=== PATIENT | male | born 1970 | race Two or more races ===

== ENCOUNTER 2019-11-18 19:52 | Emergency (ER) | payer SELFPAY ==
--- NOTE | 2019-11-18 20:31 | ER Document Report ---
ED Medical Screen (RME) - General Chief Complaint: Scrotal Pain, Acute Onset Stated Complaint: LEFT TESTICLE SWELLING Time Seen by Provider: 11/18/19 20:26 Primary Care Provider: DARIUS GARCIA MD [Primary Care Provider] - Follow up as needed Mode of Arrival: Ambulatory Information source: Patient Notes: 49-year-old male presented to ED for complaint of painful swollen left testicle. He states he noticed it this morning and is gotten progressively worse throughout the day. He is alert oriented respirations regular nonlabored speaking in full sentences. He states he has never had a swollen testicle before. He states he does smoke to black in miles a day drinks once a month and smokes some marijuana. I have greeted and performed a rapid initial assessment of this patient. A comprehensive ED assessment and evaluation of the patient, analysis of test results and completion of medical decision making process will be conducted by an additional ED providers. - Related Data Allergies/Adverse Reactions: No Known Allergies Allergy (Verified 11/18/19 20:21) Past Medical History Pulmonary Medical History: Denies: Hx Tuberculosis Neurological Medical History: Denies: Hx Seizures Renal/ Medical History: Reports: Hx Kidney Stones GI Medical History: Reports: Hx Gastroesophageal Reflux Disease Past Surgical History: Denies: Hx Pacemaker - Immunizations Hx Diphtheria, Pertussis, Tetanus Vaccination: No Physical Exam - Vital signs Vitals: Temp Pulse Resp BP Pulse Ox 97.7 F 75 20 140/75 H 99 11/18/19 19:57 11/18/19 19:57 11/18/19 19:57 11/18/19 19:57 11/18/19 19:57 Course - Vital Signs Vital signs: Temp Pulse Resp BP Pulse Ox 97.7 F 75 20 140/75 H 99 11/18/19 19:57 11/18/19 19:57 11/18/19 19:57 11/18/19 19:57 11/18/19 19:57 Doctor's Discharge - Discharge Referrals: DARIUS GARCIA MD [Primary Care Provider] - Follow up as needed
[2019-11-18] MEDS ORDERED: OXYCODONE-ACETAMINOPHEN 5-325 MG TABLET PO ONE (21:09)
--- NOTE | 2019-11-18 21:11 | ER Document Report ---
ED General - General Chief Complaint: Scrotal Pain, Acute Onset Stated Complaint: LEFT TESTICLE SWELLING Time Seen by Provider: 11/18/19 20:26 Primary Care Provider: DARIUS GARCIA MD [ACTIVE STAFF] - Follow up as needed Mode of Arrival: Ambulatory Information source: Patient - [facility] Notes: Patient presents with left testicle pain. He states that it started this morning. It is been constant. Is worse with movement and better with rest. It radiates into the left inguinal area. He has had no pain with urination. No abdominal pain. No problems with bowel habits. No abdominal pain or fevers. No previous history of similar incidents. No rashes. - Related Data Allergies/Adverse Reactions: No Known Allergies Allergy (Verified 11/18/19 20:21) Past Medical History - General Information source: Patient - Social History Smoking Status: Current Every Day Smoker Frequency of alcohol use: None Drug Abuse: Marijuana Family History: Reviewed & Not Pertinent Patient has homicidal ideation: No Pulmonary Medical History: Denies: Hx Tuberculosis Neurological Medical History: Denies: Hx Seizures Renal/ Medical History: Reports: Hx Kidney Stones GI Medical History: Reports: Hx Gastroesophageal Reflux Disease Past Surgical History: Denies: Hx Pacemaker - Immunizations Hx Diphtheria, Pertussis, Tetanus Vaccination: No Review of Systems - Review of Systems Constitutional: denies: Chills, Fever Cardiovascular: denies: Chest pain, Palpitations Respiratory: denies: Cough, Short of breath -: Yes All other systems reviewed and negative Physical Exam - Vital signs Vitals: Temp Pulse Resp BP Pulse Ox 97.7 F 75 20 140/75 H 99 11/18/19 19:57 11/18/19 19:57 11/18/19 19:57 11/18/19 19:57 11/18/19 19:57 Interpretation: Normal - General General appearance: Appears well, Alert - HEENT Head: Normocephalic, Atraumatic Eyes: Normal Pupils: PERRL - Respiratory Respiratory status: No respiratory distress Chest status: Nontender Breath sounds: Normal Chest palpation: Normal - Cardiovascular Rhythm: Regular Heart sounds: Normal auscultation Murmur: No - Abdominal Inspection: Normal Distension: No distension Bowel sounds: Normal Tenderness: Nontender Organomegaly: No organomegaly - Genitourinary Inspection: Other - Left scrotum appears swollen Tenderness: Testicle tender, Epididymis tender - Left scrotum is diffusely swollen and tender. Scrotum: Swelling - Back Back: Normal, Nontender - Extremities General upper extremity: Normal inspection, Nontender, Normal color, Normal ROM, Normal temperature General lower extremity: Normal inspection, Nontender, Normal color, Normal ROM, Normal temperature, Normal weight bearing. No: Du's sign - Neurological Neuro grossly intact: Yes Cognition: Normal Orientation: AAOx4 [place] Coma Scale Eye Opening: Spontaneous [place] Coma Scale Verbal: Oriented [place] Coma Scale Motor: Obeys Commands [place] Coma Scale Total: 15 Speech: Normal Motor strength normal: LUE, RUE, LLE, RLE Sensory: Normal - Psychological Associated symptoms: Normal affect, Normal mood - Skin Skin Temperature: Warm Skin Moisture: Dry Skin Color: Normal Course - Re-evaluation Re-evalutation: 11/18/19 21:32 Patient presents with left testicle pain. Ultrasound shows a left hydrocele. Exam appears consistent with epididymitis. There is no evidence of torsion. I am going to give the patient antibiotics pain medication and refer him to urology. - Vital Signs Vital signs: Temp Pulse Resp BP Pulse Ox 97.7 F 75 20 140/75 H 99 11/18/19 20:22 11/18/19 19:57 11/18/19 19:57 11/18/19 19:57 11/18/19 19:57 - Diagnostic Test Radiology reviewed: Image reviewed, Reports reviewed Discharge - Discharge Clinical Impression: Left epididymitis Condition: Stable Disposition: HOME, SELF-CARE Instructions: Epididymitis (OM) Additional Instructions: Please call urology as soon as possible to arrange follow-up Prescriptions: Levofloxacin [Levaquin 750 mg Tablet] 750 mg PO DAILY #10 tab Oxycodone HCl/Acetaminophen [Percocet 5-325 mg Tablet] 1 tab PO Q6 PRN 3 Days #12 tablet PRN Reason: Forms: Return to Work Referrals: RENE QUINONES MD [NO LOCAL MD] - Follow up in 3-5 days
--- NOTE | 2019-11-18 21:25 | RADIOLOGY REPORT (SQ) ---
CLINICAL INDICATION: Painful swollen left testicle. . TECHNIQUE: Real time multiplanar ultrasonographic herrmann scale, color Doppler, and spectral Doppler imaging was obtained of the scrotum. 49 static images obtained. Additional cine loop COMPARISON: None. CORRELATION: None. FINDINGS: The right testicle measures 4.6 x 2.3 x 3.6 centimeters. It is of normal homogeneous echotexture. The epididymis measures 2.8 x 1.9 x 1.1 centimeters. It is of normal homogeneous echotexture. Multiple epididymal cysts, the largest measuring 2.1 cm.. Color Doppler imaging is normal. Spectral Doppler imaging is normal. The left testicle measures 3.8 x 2.4 x 3.5 centimeters. It is of normal homogeneous echotexture. The epididymis measures 1.1 x 1.2 x 0.6 centimeters. It is of normal homogeneous echotexture. Large left hydrocele Color Doppler imaging is normal. Spectral Doppler imaging is normal. IMPRESSION: Right epididymal cyst. Left hydrocele. No evidence of torsion.
[2019-11-18] MEDS ORDERED: LEVOFLOXACIN 750 MG TABLET PO ONE (21:42)
[2019-11-18] MEDS ORDERED: CEFTRIAXONE INJ 250 MG VIAL IM ONE (21:45)
[2019-11-18] MEDS ORDERED: LIDOCAINE 1% INJ-PF (10 MG/ML) 30 ML SDV NEB ONE (21:45)
[2019-11-18 22:25] LABS: AMORPHOUS SEDIMENT,URINE TRACE /HPF; APPEARANCE,URINE SLIGHTLY-CLOUDY; BILIRUBIN,URINE NEGATIVE (NEGATIVE); COLOR,URINE YELLOW; GLUCOSE, URINE NEGATIVE (NEGATIVE); KETONES,URINE NEGATIVE (NEGATIVE); PROTEIN,URINE NEGATIVE (NEGATIVE); URINE SPECIFIC GRAVITY 1.018; UROBILINOGEN,URINE NEGATIVE mg/dL (<2.0)
[2019-11-18 22:58] VITALS: BP 114/76
[2019-11-19 00:19] LABS: CHLAM PCR NOT DETECTED (NOT DETECT)
== END 2019-11-18 22:48 | disposition home or self-care (01) ==
LOC: ER 19:52
DX: N45.1 Epididymitis (principal); N50.82 Scrotal pain; F17.200 Nicotine dependence, unspecified, uncomplicated; Z87.442 Personal history of urinary calculi
CPT/HCPCS: 99284; 96372; 81001; 87491; 87591; 76870; 93976; J3490; J0696

== ENCOUNTER 2020-06-01 09:59 | Emergency (ER) | payer OTHER ==
[2020-06-01] MEDS ORDERED: IBUPROFEN 800 MG TABLET PO ONE (11:06)
--- NOTE | 2020-06-01 11:11 | ER Document Report ---
ED Shoulder Pain/Injury - General Chief Complaint: Shoulder Injury Stated Complaint: SHOULDER/ ELBOW PAIN Time Seen by Provider: 06/01/20 11:05 Mode of Arrival: Ambulatory Information source: Patient Notes: 49-year-old male presents to ED for complaint of pain to his left shoulder and elbow. 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 He states he has had pain to both areas since then. He does have full range of motion but with pain and discomfort. There is swelling to the left shoulder and the left elbow. We will get x-rays of both. He has been treated with ibuprofen at this time and we will reassess after his x-rays are completed. Constitutional: Negative for fever. HENT: Negative for sore throat. Eyes: Negative for visual changes. Cardiovascular: Negative for chest pain. Respiratory: Negative for shortness of breath. Gastrointestinal: Negative for abdominal pain, vomiting or diarrhea. Genitourinary: Negative for dysuria. Musculoskeletal: Pain swelling to left elbow and shoulder. He states the pain is increased with any movement. Pain level is a 4/5 at this time since I had him move the shoulder/ Skin: Negative for rash. Neurological: Negative for headaches, weakness or numbness. 10 point ROS negative except as marked above and in HPI. PHYSICAL EXAMINATION: GENERAL: Well-appearing, well-nourished and in no acute distress. HEAD: Atraumatic, normocephalic. EYES: Pupils equal round extraocular movements intact, conjunctiva are normal. ENT: Nares patent NECK: Normal range of motion LUNGS: No respiratory distress Musculoskeletal: Normal range of motion NEUROLOGICAL: The range of motion to the left shoulder and elbow. Both are tender to palpation and swollen. He does have full range of motion but very painful. PSYCH: Normal mood, normal affect. SKIN: Warm, Dry, normal turgor, no rashes or lesions noted. - HPI Occurred: Other - Monday Timing: Still present Where: Work Quality of pain: Throbbing Severity: Moderate Pain Level: 4 Context: Other Associated symptoms: None - Get a pipe while painting Exacerbated by: Movement Relieved by: Remaining still - Related Data Allergies/Adverse Reactions: No Known Allergies Allergy (Verified 11/18/19 20:21) Past Medical History - General Information source: Patient - Social History Smoking Status: Current Every Day Smoker Cigarette use (# per day): Yes - Black and mild Smoking Education Provided: Yes Frequency of alcohol use: None Drug Abuse: Marijuana Family History: Reviewed & Not Pertinent - Past Medical History Cardiac Medical History: Reports: None Pulmonary Medical History: Reports: None EENT Medical History: Reports: Eyes Neurological Medical History: Reports: None Endocrine Medical History: Reports: None Renal/ Medical History: Reports: Hx Kidney Stones Malignancy Medical History: Reports None GI Medical History: Reports: Hx Gastroesophageal Reflux Disease Musculoskeletal Medical History: Reports None Skin Medical History: Reports None Psychiatric Medical History: Reports: None Traumatic Medical History: Reports: None Infectious Medical History: Reports: None Surgical Hx: Negative Past Surgical History: Denies: Hx Pacemaker - Immunizations Hx Diphtheria, Pertussis, Tetanus Vaccination: No Physical Exam - Vital signs Vitals: Temp Pulse Resp BP Pulse Ox 98.6 F 64 18 121/76 98 06/01/20 10:24 06/01/20 10:24 06/01/20 10:24 06/01/20 10:24 06/01/20 10:24 Course - Re-evaluation Re-evalutation: 06/01/20 12:30 X-ray did not show any acute changes. He did have a contusion to the elbow and the shoulder. He does have a history of arthritis and just generative changes to both the elbow and the shoulder. He was given recommendations to follow-up with orthopedics by telephone today to schedule follow-up appointments. - Vital Signs Vital signs: Temp Pulse Resp BP Pulse Ox 98.6 F 64 18 121/76 98 06/01/20 10:24 06/01/20 10:24 06/01/20 10:24 06/01/20 10:24 06/01/20 10:24 - Diagnostic Test Radiology reviewed: Image reviewed, Reports reviewed Discharge - Discharge Clinical Impression: Arthritis Contusion of left shoulder Qualifiers: Encounter type: initial encounter Qualified Code(s): S40.012A - Contusion of left shoulder, initial encounter Left elbow contusion Qualifiers: Encounter type: initial encounter Qualified Code(s): S50.02XA - Contusion of left elbow, initial encounter Condition: Stable Disposition: HOME, SELF-CARE Additional Instructions: CONTUSION: Your injury has resulted in a contusion -- a crushing of the deep tissues. No injury to important structures was detected during the physician's exam. Contusions vary in the amount of pain they cause, and in the length of time required for healing. Typically, the area will become bruised, and will remain painful to touch for two or three weeks. However, most patients are back to working and playing within a few days. After the initial period of rest and cold-packs, your symptoms (together with the doctor's recommendations) will determine how rapidly you can get back to full activity. Usually this means "do what feels okay, but don't do things that hurt." If re-examination was recommended, it's important to follow up as instructed. Call the doctor or return any time if pain increases, if swelling becomes severe, if you develop numbness or weakness in an injured extremity, or if any other alarming symptoms occur. Arthritis Your symptoms are due to arthritis. Arthritis is an inflammation of the joints. There are many types -- osteoarthritis (due to "wear and tear"), auto- immmune arthritis (such as rheumatoid, lupus, Avery's, and others), and cryst al-induced arthritis (such as gout and pseudogout). The physician's examination, combined with laboratory tests, will determine the cause of your arthritis. All types of arthritis are treated with antiinflammatory medications. Other medication may be required for special types of arthritis, or if your problem does not respond to the antiinflammatory medicine. Local warmth may be helpful. Move the involved joints through the full range of motion daily. Mild exercise is usually still possible for most persons with arthritis (ask your physician). Swimming provides good exercise without damaging the joints. Contact the physician if you are worsening in any way. USE OF TYLENOL (ACETAMINOPHEN): Acetaminophen may be taken for pain relief or fever control. It's much safer than aspirin, offering a wider range of "safe" dosages. It is safe during . Some brand names are Tylenol, Panadol, Datril, Anacin 3, Tempra, and Liquiprin. Acetaminophen can be repeated every four hours. The following are maximum recommended dosages: WEIGHT Dose Drops Elixir Chewable(80mg) (LBS.) drprs=droppers tsp=teaspoon 6 40 mg 0.4 ml (1/2) 6-11 80 mg 0.8 ml (full) tsp 1 tab 12-16 120 mg 1 1/2 drprs 3/4 tsp 1 1/2 tabs 17-23 160 mg 2 drprs 1 tsp 2 tabs 24-30 240 mg 3 drprs 1 1/2 tsp 3 tabs 30-35 320 mg 2 tsp 4 tabs 36-41 360 mg 2 1/4 tsp 4 1/2 tabs 42-47 400 mg 2 1/2 tsp 5 tabs 48-53 480 mg 3 tsp 6 tabs 54-59 520 mg 3 1/4 tsp 6 1/2 tabs 60-64 560 mg 3 1/2 tsp 7 tabs 65-70 600 mg 3 3/4 tsp 7 1/2 tabs 71-76 640 mg 4 tsp 8 tabs 77-82 720 mg 4 1/2 tsp 9 tabs 83-88 800 mg 5 tsp 10 tabs >89 pounds or adults 650 mg to 900 mg Acetaminophen can be repeated every four hours. Maximum dose not to exceed 4000 mg a day. These maximum recommended dosages are slightly higher than the dosages written on the product container, but these dosages are very safe and below the toxic dosage for acetaminophen. Ibuprofen Ibuprofen is an excellent, safe drug for pain control. In addition, it has potent antiinflammatory effects which are beneficial, especially in the treatment of injuries, arthritis, or tendonitis. It's best to take ibuprofen with food. Persons with ulcer disease or allergy to aspirin should notify their physician of this before taking ibuprofen. Take the medication exactly as prescribed. Don't take additional doses unless instructed to do so by your doctor. If you develop wheezing, shortness of breath, hives, faintness, stomach pain, vomiting, or dark black stools, return for re-evaluation at once.ammation and discomfort. Return for evaluation if the reaction becomes severe. Ice & Elevation Apply ice packs frequently against the painful area. Many different schedules are recommended, such as "20 minutes on, 20 minutes off" or "one hour ice, two hours rest." If you need to work, you may need to go longer between ice treatments. You should plan to have the area ice packed AT LEAST one-fourth of the time. The ice should be applied over the wrap, tape, or splint, or over a layer of cloth -- not directly against the skin. Some ice bags have a built-in cloth and can be put directly on the skin. Your injured part should be elevated as much as possible over the next 48 hours. Try to keep the injury above the level of the heart. Avoid use of the injured area. Elevation and rest will decrease the swelling. FOLLOW-UP CARE: If you have been referred to a physician for follow-up care, call the physicians office for an appointment as you were instructed or within the next two days. If you experience worsening or a significant change in your symptoms, notify the physician immediately or return to the Emergency Department at any time for re-evaluation. Forms: Smoking Cessation Education, Return to Work Referrals: JERARDO HOPKINS JR, [ACTIVE PROVISIONAL STAFF] - Follow up as needed [facility] [Provider Group] - Follow up as needed
--- NOTE | 2020-06-01 11:55 | RADIOLOGY REPORT (SQ) ---
EXAM DESCRIPTION: SHOULDER LEFT 2 OR MORE VIEWS IMAGES COMPLETED DATE/TIME: 06/01/2020 11:42 am REASON FOR STUDY: Injury pain COMPARISON: None. NUMBER OF VIEWS: Three views. TECHNIQUE: Internal rotation, external rotation, and Y view images acquired of the left shoulder. LIMITATIONS: None. FINDINGS: MINERALIZATION: Normal. BONES: No acute fracture. No worrisome bone lesions. JOINTS: Mild acromioclavicular degenerative joint changes. No dislocation. VISUALIZED LUNGS AND RIBS: No pneumothorax. No rib fracture. SOFT TISSUES: No radiopaque foreign body. OTHER: No other significant finding. IMPRESSION: 1. No acute osseous findings. 2. Mild degenerative changes at the acromioclavicular joint. TECHNICAL DOCUMENTATION: JOB ID: [id number] 2010 [employer]- All Rights Reserved Reading location - IP/workstation name: [email or web address]
--- NOTE | 2020-06-01 11:57 | RADIOLOGY REPORT (SQ) ---
EXAM DESCRIPTION: ELBOW LEFT OVER 2 VIEWS IMAGES COMPLETED DATE/TIME: 06/01/2020 11:42 am REASON FOR STUDY: Injury pain COMPARISON: None. NUMBER OF VIEWS: Four views. TECHNIQUE: AP, lateral, and both oblique radiographic images acquired of the left elbow. LIMITATIONS: None. FINDINGS: MINERALIZATION: Normal. BONES: No acute fracture or dislocation. No worrisome bone lesions. JOINT: Mildly prominent distal humeral osteophyte or loose body within the joint space. Mildly prom inent radial head osteophyte. Small osteophyte at the olecranon process of the ulna. No effusion. SOFT TISSUES: No soft tissue swelling. No foreign body. OTHER: No other significant finding. IMPRESSION: 1. Degenerative arthritic changes as above. 2. No acute osseous findings. TECHNICAL DOCUMENTATION: JOB ID: [id number] 2010 [employer]- All Rights Reserved Reading location - IP/workstation name: [email or web address]
[2020-06-01 12:40] VITALS: BP 129/73
== END 2020-06-01 12:32 | disposition home or self-care (01) ==
LOC: ER 09:59
DX: S40.012A Contusion of left shoulder, initial encounter (principal); S50.02XA Contusion of left elbow, initial encounter; M25.512 Pain in left shoulder; M25.522 Pain in left elbow; M79.89 Other specified soft tissue disorders; W22.8XXA Striking against or struck by other objects, initial encounter; F17.210 Nicotine dependence, cigarettes, uncomplicated
CPT/HCPCS: 99284